=== PATIENT | male | born 1945 | race Caucasian/White ===

== ENCOUNTER 2018-06-28 00:01 | Inpatient (IN) | payer MEDICARE, MEDICAID ==
[~2018-06-28] VITALS: Ht 188 cm; Wt 70.7 kg
[~2018-06-28 00:01] MED LIST: BACL20TA PO; DIPH25CA7 PO; DOCU100C40 PO; FOLI-43 PO; HYDR-4383 PO; HYDR25TA4 PO; MAGN400C PO; MULT-342 PO; NICO-631 TD; NORCO10T PO; OMEP-50 PO; QUET25TA34 PO; THI100T PO; TRAM50TA2 PO
[2018-06-28 02:20] LABS: BASOPHILS # (AUTO) 0.1 X10'3 (0-0.2); BASOPHILS % (AUTO) 0.7 % (0-1); EOSINOPHILS # (AUTO) 0.2 X10'3 (0-0.9); EOSINOPHILS % (AUTO) 1.4 % (0-6); HEMATOCRIT 48.2 % (42.0-52.0); HEMOGLOBIN 16.2 g/dl (14.0-17.9); LYMPHOCYTES # (AUTO) 1.8 X10'3 (1.1-4.8); LYMPHOCYTES % (AUTO) 15.4 % (21-51); MEAN CORPUSCULAR HEMOGLOBIN 29.6 PG (27.0-31.0); MEAN CORPUSCULAR HGB CONC 33.6 % (33.0-36.5); MEAN PLATELET VOLUME 9.4 FL (7.4-10.4); MONOCYTES # (AUTO) 0.5 X10'3 (0-0.9); MONOCYTES % (AUTO) 4.6 % (2-12); NEUTROPHILS # (AUTO) 9.1 X10'3 (1.8-7.7); NEUTROPHILS % (AUTO) 77.9 % (42-75); PLATELET COUNT 110 X10'3 (140-440); RED BLOOD COUNT 5.48 X10'6 (4.70-6.10); RED CELL DISTRIBUTION WIDTH 17.3 % (11.5-14.5); WHITE BLOOD COUNT 11.6 X10'3 (4.5-11.0)
[2018-06-28 02:29] LABS: ALANINE AMINOTRANSFERASE 25 U/L (12-78); ALBUMIN 4.7 G/DL (3.4-5.0); ALBUMIN/GLOBULIN RATIO 1.2 (1.1-1.5); ALKALINE PHOSPHATASE 94 IU/L (46-116); ANION GAP 18 (8-16); ASPARTATE AMINO TRANSFERASE 25 U/L (10-37); BILIRUBIN,TOTAL 1.4 MG/DL (0.1-1.0); BLOOD UREA NITROGEN 26 MG/DL (7-18); BUN/CREATININE RATIO 12.1 (5.4-32.0); CALCIUM 9.4 MG/DL (8.5-10.1); CHLORIDE 93 MMOL/L (99-107); CREATININE 2.14 MG/DL (0.60-1.10); GLUCOSE 123 MG/DL (70-104); LIPASE 108 U/L (73-393); POTASSIUM 3.2 MMOL/L (3.5-5.1); SODIUM 134 MMOL/L (135-145); TOTAL CARBON DIOXIDE 23.2 MMOL/L (24-32); TOTAL PROTEIN 8.7 G/DL (6.4-8.2); eGFR 31 ML/MIN
[2018-06-28] MEDS ORDERED: normal saline 1000ML IV soln IV ONE (04:05)
[2018-06-28] MEDS ORDERED: piperacillin/tazo 3.375gm/50ml 50 ML IV SCH (04:10)
[2018-06-28 04:23] LABS: CLARITY,URINE SLIGHTLY CLOUDY (Clear); COLOR,URINE YELLOW (Yellow); GLUCOSE, URINE NEGATIVE (Neg); KETONES,URINE 15 mg/dl (Neg); LEUKOCYTE ESTERASE ,URINE NEGATIVE (Neg); NITRITES, URINE NEGATIVE (Neg); OCCULT BLOOD,URINE NEGATIVE (Neg); PROTEIN,URINE 100 mg/dl (Neg)
[2018-06-28 04:24] LABS: UA COLLECTION TYPE CLN CATCH MIDSTREAM
[2018-06-28 04:29] LABS: MUCUS STRANDS MANY /LPF (Neg)
[2018-06-28 04:30] LABS: BACTERIA,URINE 2+ /HPF (Neg); SQUAMOUS EPITHELIAL CELL,UR MODERATE /LPF (FEW); WBC,URINE 20-30 /HPF (0-4)
[2018-06-28] MEDS: piperacillin-tazo 2.25gm/50ml 50 ML IV SCH ×2 (04:30→12:27)
[2018-06-28 04:32] LABS: CAL OXALATE CRYSTALS 1+ /HPF (NEGATIVE); RBC,URINE 0-2 /HPF (0-2)
[2018-06-28] MEDS ORDERED: INDO50CA14 PO ×2 (04:40→08:50)
[2018-06-28] MEDS ORDERED: TRAZ-218 PO (04:40)
[2018-06-28] MEDS ORDERED: LISI-600 PO ×2 (04:40→08:50)
[2018-06-28] MEDS ORDERED: DULO60CA45 PO (04:40)
[2018-06-28] MEDS ORDERED: diphenhydrAMINE 25mg capsule PO PRN (04:45)
[2018-06-28] MEDS ORDERED: acetaminophen 325mg tablet PO PRN ×2 (04:45)
[2018-06-28] MEDS ORDERED: mag hydrox/Alum hydrox/simeth 30ml oral suspension PO PRN (04:45)
[2018-06-28] MEDS ORDERED: bisacodyl 10mg suppository rectal RC PRN (04:45)
[2018-06-28] MEDS ORDERED: metoclopramide 5 mg/ml inj IV PRN (04:45)
[2018-06-28] MEDS ORDERED: acetaminophen 650mg rectal suppository RC PRN (04:45)
[2018-06-28] MEDS ORDERED: HYDROmorphone 1 mg/ml syringe IV PRN ×2 (04:45)
[2018-06-28] MEDS ORDERED: magnesium hydroxide 30ml (MOM) UD suspension PO PRN (04:45)
[2018-06-28] MEDS ORDERED: ondansetron/PF 4mg/2ml inj IV PRN (04:45)
[2018-06-28] MEDS ORDERED: HYDROcodone/acetaminophen 10/325mg tab PO PRN (04:45)
[2018-06-28] MEDS ORDERED: diphenhydrAMINE 50 mg/ml inj IV PRN (04:45)
[2018-06-28] MEDS ORDERED: potassium Cl 20 mEq SR tablet PO PRN ×4 (04:45→10:50)
[2018-06-28] MEDS ORDERED: potassium Cl 40MEQ/NS 500ml 500 ML IV PRN ×4 (04:45→10:50)
[2018-06-28] MEDS: potassium Cl 20mEq in NS 1,000 ML IV SCH ×2 (05:35→14:41)
[2018-06-28] MEDS ORDERED: CefTRIAXone/D5W-Rocephin 1gm 50 ML IV SCH (08:00)
[2018-06-28] MEDS: K and/or MAG REPLACEMENT MC SCH ×2 (08:00→20:00)
[2018-06-28 08:23] LABS: PHOSPHORUS 3.2 MG/DL (2.3-4.5)
[2018-06-28] MEDS: pantoprazole 40 MG vial IV SCH (08:35)
[2018-06-28] MEDS: docusate sod 100mg capsule PO SCH ×2 (08:36→20:49)
[2018-06-28] MEDS ORDERED: OMEP40CA37 PO (08:50)
[2018-06-28] MEDS ORDERED: POTA10TA10 PO (08:50)
[2018-06-28] MEDS ORDERED: magnesium 4gm in 100ml NS 100 ML IV PRN (10:15)
[2018-06-28] MEDS ORDERED: magnesium Cl slow-release 64mg tablet PO PRN (10:15)
[2018-06-28] MEDS ORDERED: DULO30CA51 PO (14:58)
[2018-06-28] MEDS ORDERED: haloperidol 5mg tablet PO PRN (15:05)
[2018-06-28] MEDS ORDERED: haloperidol lactate 5mg/ml inj IM PRN (15:05)
[2018-06-28] MEDS ORDERED: thiamine 100mg/ml 2ml inj. IV ONE (15:05)
[2018-06-28] MEDS ORDERED: dextrose 50%-water 50ml dispensing syringe IV PRN (15:05)
[2018-06-28] MEDS ORDERED: LORazepam 2 mg/ml vial IV PRN (15:05)
[2018-06-28] MEDS: metroNIDAZOLE-Flagyl 500mg/NS 100 ML IV SCH (16:27)
[2018-06-28] MEDS: pantoprazole 40mg Tablet.DR PO SCH (20:49)
[2018-06-29] MEDS: metroNIDAZOLE-Flagyl 500mg/NS 100 ML IV SCH ×3 (00:01→16:35)
[2018-06-29] MEDS: traZODone 50mg tablet PO PRN ×2 (00:02→21:36)
[2018-06-29] MEDS: diphenhydrAMINE 25mg capsule PO PRN ×2 (00:04→21:36)
[2018-06-29] MEDS: potassium Cl 20mEq in NS 1,000 ML IV SCH ×3 (00:38→19:21)
[2018-06-29 07:30] LABS: BASOPHILS % (AUTO) 0.5 % (0-1); EOSINOPHILS # (AUTO) 0.3 X10'3 (0-0.9); EOSINOPHILS % (AUTO) 4.6 % (0-6); HEMATOCRIT 34.9 % (42.0-52.0); HEMOGLOBIN 11.8 g/dl (14.0-17.9); LYMPHOCYTES # (AUTO) 1.2 X10'3 (1.1-4.8); LYMPHOCYTES % (AUTO) 21.5 % (21-51); MEAN CORPUSCULAR HEMOGLOBIN 30.2 PG (27.0-31.0); MEAN CORPUSCULAR HGB CONC 33.9 % (33.0-36.5); MEAN CORPUSCULAR VOLUME 89.1 FL (78-98); MEAN PLATELET VOLUME 8.7 FL (7.4-10.4); MONOCYTES # (AUTO) 0.5 X10'3 (0-0.9); NEUTROPHILS # (AUTO) 3.7 X10'3 (1.8-7.7); NEUTROPHILS % (AUTO) 64.4 % (42-75); PLATELET COUNT 65 X10'3 (140-440); RED BLOOD COUNT 3.91 X10'6 (4.70-6.10); WHITE BLOOD COUNT 5.7 X10'3 (4.5-11.0)
[2018-06-29 07:53] LABS: ALANINE AMINOTRANSFERASE 21 U/L (12-78); ALBUMIN 3.2 G/DL (3.4-5.0); ALBUMIN/GLOBULIN RATIO 1.1 (1.1-1.5); ALKALINE PHOSPHATASE 65 IU/L (46-116); ANION GAP 8 (8-16); ASPARTATE AMINO TRANSFERASE 19 U/L (10-37); BILIRUBIN,TOTAL 0.8 MG/DL (0.1-1.0); BLOOD UREA NITROGEN 20 MG/DL (7-18); BUN/CREATININE RATIO 19.4 (5.4-32.0); CALCIUM 8.2 MG/DL (8.5-10.1); CHLORIDE 108 MMOL/L (99-107); CREATININE 1.03 MG/DL (0.60-1.10); GLUCOSE 99 MG/DL (70-104); MAGNESIUM 1.9 MG/DL (1.5-2.4); POTASSIUM 4.3 MMOL/L (3.5-5.1); SODIUM 141 MMOL/L (135-145); TOTAL CARBON DIOXIDE 25.5 MMOL/L (24-32); TOTAL PROTEIN 6.1 G/DL (6.4-8.2); eGFR 71 ML/MIN
[2018-06-29] MEDS: docusate sod 100mg capsule PO SCH ×2 (08:00→20:00)
[2018-06-29] MEDS: pantoprazole 40 MG vial IV SCH (08:00)
[2018-06-29] MEDS: K and/or MAG REPLACEMENT MC SCH ×2 (08:00→20:00)
[2018-06-29 08:42] VITALS: BP 178/91
[2018-06-29] MEDS: potassium chloride 10mEq ER tablet PO SCH (09:23)
[2018-06-29] MEDS: pantoprazole 40mg Tablet.DR PO SCH ×2 (09:24→19:21)
[2018-06-29] MEDS: lisinopril 10 MG tablet PO SCH (09:26)
[2018-06-29 10:00] LABS: OCCULT BLOOD STOOL POSITIVE (Neg)
[2018-06-29 10:29] LABS: C DIFF ANTIGEN NEGATIVE (NEGATIVE); C DIFF SPECIMEN=DIARRHEA? ACCEPTABLE; C DIFFICILE TOXINS A&B NEGATIVE (Neg)
[2018-06-29] MEDS: indomethacin 25mg capsule PO SCH (10:56)
[2018-06-29] MEDS: levoFLOXACIN-Levaquin 250mg/D5 50 ML IV SCH (10:59)
[2018-06-29 18:45] VITALS: BP 125/78
[2018-06-29 23:30] VITALS: BP 116/83
[2018-06-30] MEDS: metroNIDAZOLE-Flagyl 500mg/NS 100 ML IV SCH ×4 (00:02→23:11)
[2018-06-30] MEDS: potassium Cl 20mEq in NS 1,000 ML IV SCH ×3 (05:45→19:17)
[2018-06-30 06:00] LABS: BASOPHILS # (AUTO) 0.1 X10'3 (0-0.2); BASOPHILS % (AUTO) 0.9 % (0-1); EOSINOPHILS # (AUTO) 0.3 X10'3 (0-0.9); EOSINOPHILS % (AUTO) 5.7 % (0-6); HEMATOCRIT 33.9 % (42.0-52.0); HEMOGLOBIN 11.6 g/dl (14.0-17.9); LYMPHOCYTES # (AUTO) 1.4 X10'3 (1.1-4.8); LYMPHOCYTES % (AUTO) 24.4 % (21-51); MEAN CORPUSCULAR HEMOGLOBIN 30.5 PG (27.0-31.0); MEAN CORPUSCULAR HGB CONC 34.3 % (33.0-36.5); MEAN CORPUSCULAR VOLUME 88.7 FL (78-98); MONOCYTES # (AUTO) 0.6 X10'3 (0-0.9); MONOCYTES % (AUTO) 10.4 % (2-12); NEUTROPHILS # (AUTO) 3.3 X10'3 (1.8-7.7); NEUTROPHILS % (AUTO) 58.6 % (42-75); PLATELET COUNT 69 X10'3 (140-440); RED BLOOD COUNT 3.82 X10'6 (4.70-6.10); WHITE BLOOD COUNT 5.6 X10'3 (4.5-11.0)
[2018-06-30 06:12] LABS: ALANINE AMINOTRANSFERASE 21 U/L (12-78); ALBUMIN 3.3 G/DL (3.4-5.0); ALBUMIN/GLOBULIN RATIO 1.1 (1.1-1.5); ALKALINE PHOSPHATASE 92 IU/L (46-116); ANION GAP 10 (8-16); ASPARTATE AMINO TRANSFERASE 18 U/L (10-37); BILIRUBIN,TOTAL 0.6 MG/DL (0.1-1.0); BLOOD UREA NITROGEN 19 MG/DL (7-18); BUN/CREATININE RATIO 23.2 (5.4-32.0); CALCIUM 8.3 MG/DL (8.5-10.1); CHLORIDE 107 MMOL/L (99-107); CREATININE 0.82 MG/DL (0.60-1.10); GLUCOSE 89 MG/DL (70-104); MAGNESIUM 1.7 MG/DL (1.5-2.4); POTASSIUM 4.3 MMOL/L (3.5-5.1); SODIUM 140 MMOL/L (135-145); TOTAL CARBON DIOXIDE 23.5 MMOL/L (24-32); TOTAL PROTEIN 6.2 G/DL (6.4-8.2); eGFR > 90 ML/MIN
[2018-06-30 08:00] VITALS: BP 169/78
[2018-06-30] MEDS: pantoprazole 40 MG vial IV SCH (08:00)
[2018-06-30] MEDS: docusate sod 100mg capsule PO SCH ×2 (08:00→20:00)
[2018-06-30] MEDS: K and/or MAG REPLACEMENT MC SCH ×2 (08:00→20:00)
[2018-06-30] MEDS: potassium chloride 10mEq ER tablet PO SCH (08:34)
[2018-06-30] MEDS: lisinopril 10 MG tablet PO SCH (08:35)
[2018-06-30] MEDS: pantoprazole 40mg Tablet.DR PO SCH ×2 (08:35→20:09)
[2018-06-30] MEDS ORDERED: pneumococcal 23-VAL P-sac vacc 25 mcg/0.5ml vial IMVAC ONE (10:00)
[2018-06-30] MEDS: indomethacin 25mg capsule PO SCH (10:18)
[2018-06-30] MEDS: duloxetine 30mg CAPSULE.DR PO SCH (10:18)
[2018-06-30] MEDS: loperamide 2mg capsule PO PRN ×2 (10:18→16:49)
[2018-06-30] MEDS: levoFLOXACIN-Levaquin 250mg/D5 50 ML IV SCH (10:19)
[2018-06-30 13:03] VITALS: BP 149/87
[2018-06-30] MEDS ORDERED: LORazepam 2 mg/ml vial IV PRN (15:05)
[2018-06-30] MEDS ORDERED: LORazepam 1 MG tablet PO PRN (15:05)
[2018-06-30 19:20] VITALS: BP 130/79
[2018-06-30] MEDS: traZODone 50mg tablet PO PRN (23:11)
[2018-06-30] MEDS: diphenhydrAMINE 25mg capsule PO PRN (23:11)
[2018-07-01] VITALS: BP 146/80
[2018-07-01] MEDS: potassium Cl 20mEq in NS 1,000 ML IV SCH ×2 (05:07→12:41)
[2018-07-01 06:29] LABS: ALANINE AMINOTRANSFERASE 20 U/L (12-78); ALBUMIN 3.4 G/DL (3.4-5.0); ALBUMIN/GLOBULIN RATIO 1.1 (1.1-1.5); ALKALINE PHOSPHATASE 68 IU/L (46-116); ANION GAP 6 (8-16); ASPARTATE AMINO TRANSFERASE 15 U/L (10-37); BILIRUBIN,TOTAL 0.8 MG/DL (0.1-1.0); BLOOD UREA NITROGEN 13 MG/DL (7-18); BUN/CREATININE RATIO 14.9 (5.4-32.0); CALCIUM 8.6 MG/DL (8.5-10.1); CHLORIDE 108 MMOL/L (99-107); CREATININE 0.87 MG/DL (0.60-1.10); GLUCOSE 83 MG/DL (70-104); MAGNESIUM 1.4 MG/DL (1.5-2.4); POTASSIUM 4.1 MMOL/L (3.5-5.1); SODIUM 142 MMOL/L (135-145); TOTAL CARBON DIOXIDE 28.4 MMOL/L (24-32); TOTAL PROTEIN 6.4 G/DL (6.4-8.2); eGFR 87 ML/MIN
[2018-07-01 06:32] LABS: BASOPHILS % (AUTO) 0.6 % (0-1); EOSINOPHILS # (AUTO) 0.4 X10'3 (0-0.9); EOSINOPHILS % (AUTO) 5.3 % (0-6); HEMATOCRIT 37.9 % (42.0-52.0); HEMOGLOBIN 12.4 g/dl (14.0-17.9); LYMPHOCYTES # (AUTO) 1.5 X10'3 (1.1-4.8); MEAN CORPUSCULAR HEMOGLOBIN 29.5 PG (27.0-31.0); MEAN CORPUSCULAR HGB CONC 32.8 % (33.0-36.5); MEAN PLATELET VOLUME 8.6 FL (7.4-10.4); MONOCYTES # (AUTO) 0.7 X10'3 (0-0.9); MONOCYTES % (AUTO) 10.5 % (2-12); NEUTROPHILS # (AUTO) 4.1 X10'3 (1.8-7.7); NEUTROPHILS % (AUTO) 61.6 % (42-75); PLATELET COUNT 88 X10'3 (140-440); RED BLOOD COUNT 4.21 X10'6 (4.70-6.10); RED CELL DISTRIBUTION WIDTH 18.2 % (11.5-14.5); WHITE BLOOD COUNT 6.7 X10'3 (4.5-11.0)
[2018-07-01 07:12] VITALS: BP 135/84
[2018-07-01] MEDS: docusate sod 100mg capsule PO SCH (07:58)
[2018-07-01] MEDS: indomethacin 25mg capsule PO SCH (08:00)
[2018-07-01] MEDS: K and/or MAG REPLACEMENT MC SCH (08:00)
[2018-07-01] MEDS: pantoprazole 40 MG vial IV SCH (08:00)
[2018-07-01] MEDS: lisinopril 10 MG tablet PO SCH (08:01)
[2018-07-01] MEDS: potassium chloride 10mEq ER tablet PO SCH (08:01)
[2018-07-01] MEDS: metroNIDAZOLE-Flagyl 500mg/NS 100 ML IV SCH (08:01)
[2018-07-01] MEDS: duloxetine 30mg CAPSULE.DR PO SCH (08:01)
[2018-07-01] MEDS: pantoprazole 40mg Tablet.DR PO SCH (08:01)
[2018-07-01] MEDS: levoFLOXACIN-Levaquin 250mg/D5 50 ML IV SCH (09:43)
[2018-07-01 12:06] VITALS: BP 143/92
[2018-07-02] MEDS ORDERED: LORazepam 1 MG tablet PO PRN (15:05)
[2018-07-02] MEDS ORDERED: LORazepam 2 mg/ml vial IV PRN (15:05)
== END 2018-07-01 13:10 | disposition home or self-care (01) | DRG 391 ==
LOC: ER 00:02 → ED HOLD 04:41 → SUR 3N 06-29 07:51 → CMPBEDREQ 06-29 08:25 → SUR 3N 06-29 14:12
PROVIDERS: ADMIT Family Medicine; ATTEND Family Medicine
PROC: 3E0234Z Introduction of Serum, Toxoid and Vaccine into Muscle, Percutaneous Approach (ICD-10-PCS; principal; 2018-06-30)
DX: A08.4 Viral intestinal infection, unspecified (principal); N17.0 Acute kidney failure with tubular necrosis; N39.0 Urinary tract infection, site not specified; E87.1 Hypo-osmolality and hyponatremia; D69.6 Thrombocytopenia, unspecified; E83.42 Hypomagnesemia; E86.0 Dehydration; E87.6 Hypokalemia; F10.20 Alcohol dependence, uncomplicated; F41.1 Generalized anxiety disorder; M10.9 Gout, unspecified; G89.29 Other chronic pain; I12.9 Hypertensive chronic kidney disease with stage 1 through stage 4 chronic kidney disease, or unspecified chronic kidney disease; N18.9 Chronic kidney disease, unspecified; N20.0 Calculus of kidney; Z56.0 Unemployment, unspecified; Z90.49 Acquired absence of other specified parts of digestive tract; Z23 Encounter for immunization; Z88.6 Allergy status to analgesic agent; Z79.899 Other long term (current) drug therapy; Z87.11 Personal history of peptic ulcer disease
CPT/HCPCS: 36415; 74176; 80053; 81001; 82272; 83605; 83690; 83735; 84100; 84145; 85025; 87040; 87045; 87046; 87070; 87088; 87324; 87449; 89055; 90732; 99285; C9113; G0378; J0696; J1956; J2543; J3411; J3475; J3490; J7030; Q0163

== ENCOUNTER 2018-08-04 10:04 | Emergency (ER) | payer MEDICARE, MEDICAID ==
[~2018-08-04] VITALS: Ht 182.9 cm; Wt 68.2 kg
[~2018-08-04 10:04] MED LIST changes: -BACL20TA PO; -DOCU100C40 PO; +DULO30CA51 PO; -FOLI-43 PO; -HYDR-4383 PO; -HYDR25TA4 PO; +INDO50CA14 PO; +LISI-600 PO; -MAGN400C PO; -MULT-342 PO; -NICO-631 TD; -NORCO10T PO; -OMEP-50 PO; +OMEP40CA37 PO; +POTA10TA10 PO; -QUET25TA34 PO; -THI100T PO; -TRAM50TA2 PO; +TRAZ-218 PO
[2018-08-04] MEDS ORDERED: ondansetron/PF 4mg/2ml inj IV ONE (10:15)
[2018-08-04] MEDS ORDERED: metoclopramide 5 mg/ml inj IV ONE (10:15)
[2018-08-04] MEDS ORDERED: pantoprazole 40 MG vial IV ONE (10:15)
[2018-08-04] MEDS ORDERED: normal saline 1000ML IV soln IVB ONE (10:15)
[2018-08-04] MEDS ORDERED: LORazepam 2 mg/ml vial IV ONE (10:15)
[2018-08-04 11:12] LABS: BASOPHILS % (AUTO) 1.4 % (0-1); EOSINOPHILS # (AUTO) 0.1 X10'3 (0-0.9); EOSINOPHILS % (AUTO) 2.1 % (0-6); HEMATOCRIT 37.8 % (42.0-52.0); LYMPHOCYTES # (AUTO) 0.6 X10'3 (1.1-4.8); LYMPHOCYTES % (AUTO) 20.9 % (21-51); MEAN CORPUSCULAR HGB CONC 34.5 % (33.0-36.5); MEAN PLATELET VOLUME 7.5 FL (7.4-10.4); MONOCYTES # (AUTO) 0.3 X10'3 (0-0.9); MONOCYTES % (AUTO) 9.4 % (2-12); NEUTROPHILS % (AUTO) 66.2 % (42-75); PLATELET COUNT 60 X10'3 (140-440); RED CELL DISTRIBUTION WIDTH 18.5 % (11.5-14.5)
[2018-08-04 11:26] LABS: ALANINE AMINOTRANSFERASE 45 U/L (12-78); ALBUMIN 3.5 G/DL (3.4-5.0); ALBUMIN/GLOBULIN RATIO 1.2 (1.1-1.5); ALKALINE PHOSPHATASE 61 IU/L (46-116); ANION GAP 19 (8-16); ASPARTATE AMINO TRANSFERASE 39 U/L (10-37); BILIRUBIN,TOTAL 0.5 MG/DL (0.1-1.0); BLOOD UREA NITROGEN 10 MG/DL (7-18); BUN/CREATININE RATIO 13.2 (5.4-32.0); CALCIUM 8.2 MG/DL (8.5-10.1); CHLORIDE 99 MMOL/L (99-107); CREATININE 0.76 MG/DL (0.60-1.10); GLUCOSE 114 MG/DL (70-104); LIPASE 114 U/L (73-393); MAGNESIUM 1.2 MG/DL (1.5-2.4); PARTIAL THROMBOPLASTIN TIME 26 SECONDS (22-32); POTASSIUM 3.1 MMOL/L (3.5-5.1); PROTHROMBIN TIME 10.4 SECONDS (9.0-12.0); SODIUM 139 MMOL/L (135-145); TOTAL CARBON DIOXIDE 21.3 MMOL/L (24-32); TOTAL PROTEIN 6.5 G/DL (6.4-8.2); eGFR > 90 ML/MIN
[2018-08-04 12:06] LABS: CLARITY,URINE CLEAR (Clear); COLOR,URINE YELLOW (Yellow); GLUCOSE, URINE NEGATIVE (Neg); KETONES,URINE NEGATIVE (Neg); LEUKOCYTE ESTERASE ,URINE NEGATIVE (Neg); NITRITES, URINE NEGATIVE (Neg); OCCULT BLOOD,URINE NEGATIVE (Neg); PROTEIN,URINE NEGATIVE (Neg); UROBILINOGEN,URINE 0.2 E.U/dL (0.2-1.0)
[2018-08-04 12:07] LABS: UA COLLECTION TYPE CLN CATCH MIDSTREAM
[2018-08-04] MEDS ORDERED: potassium Cl 20 mEq SR tablet PO ONE (12:15)
--- NOTE | 2018-08-04 12:17 | NUR ---
to ct scan via [place]
[2018-08-04] MEDS: magnesium 2GM in 50ml NS 50 ML IV SCH ×2 (12:45→13:57)
[2018-08-04] MEDS ORDERED: GABA-532 PO (13:32)
[2018-08-04 13:35] VITALS: BP 131/82
[2018-08-04] MEDS ORDERED: chlordiazePOXIDE 25mg capsule PO ONE (13:35)
== END 2018-08-04 15:07 | disposition home or self-care (01) ==
LOC: ER 10:04
DX: F10.239 Alcohol dependence with withdrawal, unspecified (principal); R11.2 Nausea with vomiting, unspecified; R10.10 Upper abdominal pain, unspecified; I10 Essential (primary) hypertension; G89.29 Other chronic pain; M10.9 Gout, unspecified; Z90.49 Acquired absence of other specified parts of digestive tract; Z88.5 Allergy status to narcotic agent; Z79.899 Other long term (current) drug therapy; Y90.9 Presence of alcohol in blood, level not specified; Z56.0 Unemployment, unspecified
CPT/HCPCS: 36415; 71045; 74176; 80053; 80320; 81003; 83690; 83735; 85025; 85610; 85730; 96361; 96365; 96366; 96375; 99284; C9113; J2060; J2405; J2765; J3475; J7030

== ENCOUNTER 2018-08-18 19:15 | Inpatient (IN) | payer MEDICARE, MEDICAID | END 2018-08-20 14:59 | disposition home or self-care (01) | LOC: ER 19:15 → ED HOLD 23:14 → SUR 3N 08-19 16:13 | DX: K52.9 Noninfective gastroenteritis and colitis, unspecified (principal); N17.0 Acute kidney failure with tubular necrosis; F10.11 Alcohol abuse, in remission; E86.0 Dehydration ==

== ENCOUNTER 2019-01-17 14:24 | Emergency (ER) | payer MEDICARE, MEDICAID ==
[~2019-01-17] VITALS: Ht 182.9 cm; Wt 68.2 kg
[~2019-01-17 14:24] MED LIST changes: -DULO30CA51 PO; +DULO30CA52 PO; +FOLI1TAB16 PO; +GABA-532 PO; -INDO50CA14 PO; -LISI-600 PO; +MULT-1179 PO; -POTA10TA10 PO; +POTASSIUM PO; +QUELT PO; -TRAZ-218 PO; +TRAZ-251 PO; +thiamine tablet PO
[2019-01-17 14:46] VITALS: BP 128/91
== END 2019-01-17 17:05 | disposition home or self-care (01) ==
LOC: ER 14:24
DX: M25.532 Pain in left wrist (principal); I10 Essential (primary) hypertension; G89.29 Other chronic pain; M10.9 Gout, unspecified; Z90.49 Acquired absence of other specified parts of digestive tract; Z56.0 Unemployment, unspecified; Z87.11 Personal history of peptic ulcer disease; Z88.5 Allergy status to narcotic agent; Z79.899 Other long term (current) drug therapy
CPT/HCPCS: 29125; 73110; 99283

== ENCOUNTER 2019-05-12 11:44 | Inpatient (IN) | payer MEDICARE, MEDICAID ==
[~2019-05-12] VITALS: Ht 188 cm; Wt 75.0 kg
[~2019-05-12 11:44] MED LIST changes: -DIPH25CA7 PO; +OMEP40CA13 PO; -OMEP40CA37 PO; +[UNRECOGNIZED DRUG - CODE] PO
[2019-05-12] MEDS ORDERED: LORazepam 2 mg/ml vial IV ONE ×2 (11:50→14:00)
[2019-05-12] MEDS ORDERED: ondansetron/PF 4mg/2ml inj IV ONE (11:50)
[2019-05-12] MEDS ORDERED: normal saline 1000ML IV soln IVB ONE (11:50)
[2019-05-12] MEDS ORDERED: pantoprazole 40 MG vial IV ONE (11:50)
[2019-05-12 12:09] LABS: BASOPHILS # (AUTO) 0.1 X10'3 (0-0.2); BASOPHILS % (AUTO) 0.8 % (0-1); EOSINOPHILS % (AUTO) 0.2 % (0-6); HEMATOCRIT 40.7 % (42.0-52.0); HEMOGLOBIN 13.5 g/dl (14.0-17.9); LYMPHOCYTES # (AUTO) 2.5 X10'3 (1.1-4.8); LYMPHOCYTES % (AUTO) 31.6 % (21-51); MEAN CORPUSCULAR HGB CONC 33.1 g/dL (33.0-36.5); MEAN CORPUSCULAR VOLUME 96.7 FL (78-98); MEAN PLATELET VOLUME 9.1 FL (7.4-10.4); MONOCYTES # (AUTO) 0.8 X10'3 (0-0.9); MONOCYTES % (AUTO) 10.4 % (2-12); NEUTROPHILS # (AUTO) 4.6 X10'3 (1.8-7.7); RED BLOOD COUNT 4.21 X10'6 (4.70-6.10); RED CELL DISTRIBUTION WIDTH 16.4 % (11.5-14.5)
--- NOTE | 2019-05-12 12:19 | NUR ---
REMOVE NONREBREATHER THAT PT HAD ON WHEN HE ARRIVED WITH EMS.
[2019-05-12 12:22] LABS: ALANINE AMINOTRANSFERASE 77 U/L (12-78); ALBUMIN 3.7 G/DL (3.4-5.0); ALBUMIN/GLOBULIN RATIO 1.2 (1.1-1.5); ALKALINE PHOSPHATASE 76 IU/L (46-116); ANION GAP 27 (8-16); ASPARTATE AMINO TRANSFERASE 103 U/L (10-37); BILIRUBIN,TOTAL 1.2 MG/DL (0.1-1.0); BLOOD UREA NITROGEN 10 MG/DL (7-18); BUN/CREATININE RATIO 9.2 (5.4-32.0); CALCIUM 9.7 MG/DL (8.5-10.1); CHLORIDE 95 MMOL/L (99-107); CREATININE 1.09 MG/DL (0.60-1.10); GLUCOSE 150 MG/DL (70-104); POTASSIUM 3.3 MMOL/L (3.5-5.1); SODIUM 139 MMOL/L (135-145); TOTAL CARBON DIOXIDE 17.1 MMOL/L (24-32); TOTAL PROTEIN 6.9 G/DL (6.4-8.2); eGFR 67 ML/MIN
[2019-05-12 12:25] LABS: ETHANOL < 0.010 GM/DL (0.0-0.010); MAGNESIUM 0.7 MG/DL (1.5-2.4); PLATELET COUNT 46 X10'3 (140-440)
[2019-05-12] MEDS: magnesium 2GM in 50ml NS 50 ML IV SCH ×2 (12:52→15:11)
--- NOTE | 2019-05-12 12:53 | NUR ---
Pt is attempting to use a urinal to void and provide urine specimen.
[2019-05-12 13:15] LABS: CLARITY,URINE CLEAR (Clear); COLOR,URINE STRAW (Yellow); GLUCOSE, URINE NEGATIVE (Neg); KETONES,URINE NEGATIVE (Neg); LEUKOCYTE ESTERASE ,URINE NEGATIVE (Neg); NITRITES, URINE NEGATIVE (Neg); OCCULT BLOOD,URINE NEGATIVE (Neg); PROTEIN,URINE NEGATIVE (Neg); UROBILINOGEN,URINE 0.2 E.U/dL (0.2-1.0)
[2019-05-12 13:18] LABS: UA COLLECTION TYPE NON-SPECIFIED
[2019-05-12 13:29] LABS: URINE AMPHETAMINE SCREEN NEGATIVE (Neg); URINE BARBITUATE SCREEN NEGATIVE (Neg); URINE BENZODIAZEPINES SCREEN NEGATIVE (Neg); URINE CANNABINOID SCREEN NEGATIVE (Neg); URINE COCAINE SCREEN NEGATIVE (Neg); URINE METHADONE SCREEN NEGATIVE (Neg); URINE OPIATE SCREEN NEGATIVE (Neg); URINE PHENCYCLIDINE SCREEN NEGATIVE (Neg)
[2019-05-12] MEDS ORDERED: MULT-955 PO (13:55)
[2019-05-12] MEDS ORDERED: GABA300T25 PO (13:55)
[2019-05-12] MEDS ORDERED: MULT-687 PO (13:56)
[2019-05-12] MEDS ORDERED: ALLO300T8 PO (13:58)
[2019-05-12] MEDS ORDERED: LISI10TA4 PO (13:58)
[2019-05-12] MEDS ORDERED: COLC0.6T69 PO (13:58)
--- NOTE | 2019-05-12 14:10 | NUR ---
PT TAKEN OUT TO CT VIA GURNEY BY KEI. SEIZURE PADS IN PLACE.
--- NOTE | 2019-05-12 14:36 | NUR ---
PT BACK FROM CT VIA [facility] BY [facility].
[2019-05-12] MEDS ORDERED: traZODone 50mg tablet PO PRN (14:40)
[2019-05-12] MEDS ORDERED: mag hydrox/Alum hydrox/simeth 30ml oral suspension PO PRN ×2 (14:50)
[2019-05-12] MEDS ORDERED: cloNIDine 0.1 mg tablet PO PRN (14:50)
[2019-05-12] MEDS ORDERED: haloperidol lactate 5mg/ml inj IM PRN (14:50)
[2019-05-12] MEDS ORDERED: loperamide 2mg capsule PO PRN (14:50)
[2019-05-12] MEDS ORDERED: cyclobenzaprine 10mg tablet PO PRN (14:50)
[2019-05-12] MEDS ORDERED: metoclopramide 5 mg/ml inj IV PRN (14:50)
[2019-05-12] MEDS ORDERED: diphenhydrAMINE 25mg capsule PO PRN (14:50)
[2019-05-12] MEDS ORDERED: magnesium Cl slow-release 64mg tablet PO PRN (14:50)
[2019-05-12] MEDS ORDERED: bisacodyl 10mg suppository rectal RC PRN (14:50)
[2019-05-12] MEDS ORDERED: magnesium 4gm in 100ml NS 100 ML IV PRN (14:50)
[2019-05-12] MEDS ORDERED: ondansetron/PF 4mg/2ml inj IV PRN (14:50)
[2019-05-12] MEDS ORDERED: LORazepam 2 mg/ml vial IV PRN ×2 (14:50)
[2019-05-12] MEDS ORDERED: potassium CL 10mEq/100ml bag 100 ML IV PRN ×2 (14:50)
[2019-05-12] MEDS ORDERED: diphenhydrAMINE 50 mg/ml inj IV PRN (14:50)
[2019-05-12] MEDS ORDERED: acetaminophen 650mg rectal suppository RC PRN (14:50)
[2019-05-12] MEDS ORDERED: dextrose 50%-water 50ml dispensing syringe IV PRN (14:50)
[2019-05-12] MEDS ORDERED: acetaminophen 325mg tablet PO PRN ×2 (14:50)
[2019-05-12] MEDS ORDERED: potassium Cl 20 mEq SR tablet PO PRN ×2 (14:50)
[2019-05-12] MEDS ORDERED: dicyclomine 10 MG capsule PO PRN (14:50)
[2019-05-12] MEDS ORDERED: magnesium hydroxide 30ml (MOM) UD suspension PO PRN (14:50)
[2019-05-12] MEDS ORDERED: thiamine 100mg/ml 2ml inj. IV ONE (14:50)
[2019-05-12] MEDS ORDERED: magnesium 2GM in 50ml NS 50 ML IV PRN (14:50)
--- NOTE | 2019-05-12 15:04 | NUR ---
Admission provider is at the bedside.
[2019-05-12 15:14] LABS: HEMOGLOBIN A1C 5.3 % (4.5-6.2)
[2019-05-12] MEDS: normal saline 1000ml 1,000 ML IV SCH (15:15)
--- NOTE | 2019-05-12 15:47 | NUR ---
Attempting to phone report to Ortho at this time.
--- NOTE | 2019-05-12 15:55 | NUR ---
Report given to JANET Hughes. Staff on Ortho reports they will phone the ED when the admission room is clean and ready.
[2019-05-12] MEDS: K and/or MAG REPLACEMENT MC SCH (16:16)
[2019-05-12 16:53] VITALS: BP 128/64
[2019-05-12 18:00] VITALS: BP 140/86
[2019-05-12] MEDS: Levetiracetam-NS 500mg/100ml 100 ML IV SCH (20:06)
[2019-05-12] MEDS: heparin, porcine 5000 units/ml vial SQ SCH (20:11)
[2019-05-12] MEDS ORDERED: temazepam 15mg capsule PO PRN (21:00)
[2019-05-12 22:00] VITALS: BP 124/81
[2019-05-13] MEDS: normal saline 1000ml 1,000 ML IV SCH ×3 (03:34→19:45)
[2019-05-13 05:49] LABS: EOSINOPHILS % (AUTO) 1.2 % (0-6); HEMOGLOBIN 13.4 g/dl (14.0-17.9); MONOCYTES # (AUTO) 0.4 X10'3 (0-0.9); MONOCYTES % (AUTO) 8.8 % (2-12); NEUTROPHILS # (AUTO) 2.6 X10'3 (1.8-7.7)
[2019-05-13 05:51] LABS: BASOPHILS % (AUTO) 1.1 % (0-1); EOSINOPHILS # (AUTO) 0.1 X10'3 (0-0.9); HEMATOCRIT 39.8 % (42.0-52.0); LYMPHOCYTES % (AUTO) 25.2 % (21-51); MEAN CORPUSCULAR HEMOGLOBIN 31.8 PG (27.0-31.0); MEAN CORPUSCULAR HGB CONC 33.7 g/dL (33.0-36.5); MEAN CORPUSCULAR VOLUME 94.5 FL (78-98); NEUTROPHILS % (AUTO) 63.7 % (42-75); RED BLOOD COUNT 4.21 X10'6 (4.70-6.10); RED CELL DISTRIBUTION WIDTH 16.8 % (11.5-14.5); WHITE BLOOD COUNT 4.1 X10'3 (4.5-11.0)
[2019-05-13 05:56] LABS: PLATELET COUNT 42 X10'3 (140-440)
--- NOTE | 2019-05-13 06:02 | NUR ---
CRITICAL LAB PLATELETS 42, DOWN FROM [address] STEVENS. NO NEW ORDERS.
--- NOTE | 2019-05-13 06:18 | NUR ---
REPORT GIVEN TO AJNET HARRIS.
[2019-05-13 06:24] LABS: ALANINE AMINOTRANSFERASE 61 U/L (12-78); ALBUMIN 3.4 G/DL (3.4-5.0); ALKALINE PHOSPHATASE 78 IU/L (46-116); AMYLASE 95 U/L (25-115); ANION GAP 11 (8-16); ASPARTATE AMINO TRANSFERASE 69 U/L (10-37); BILIRUBIN,TOTAL 1.2 MG/DL (0.1-1.0); BLOOD UREA NITROGEN 7 MG/DL (7-18); BUN/CREATININE RATIO 8.3 (5.4-32.0); CALCIUM 9.1 MG/DL (8.5-10.1); CHLORIDE 102 MMOL/L (99-107); CHOLESTEROL 340 MG/DL (0-200); CREATININE 0.84 MG/DL (0.60-1.10); GLUCOSE 84 MG/DL (70-104); LDL CHOLESTEROL 65 MG/DL (50-100); MAGNESIUM 1.5 MG/DL (1.5-2.4); PHOSPHORUS 3.5 MG/DL (2.3-4.5); POTASSIUM 3.6 MMOL/L (3.5-5.1); SODIUM 140 MMOL/L (135-145); TOTAL CARBON DIOXIDE 27.1 MMOL/L (24-32); TOTAL PROTEIN 6.8 G/DL (6.4-8.2); TRIGLYCERIDES 42 MG/DL (20-135); eGFR 90 ML/MIN
[2019-05-13 06:25] LABS: ANISOCYTOSIS 1+; LARGE PLATELETS FEW; PLATELET ESTIMATE DECREASED
[2019-05-13 06:42] VITALS: BP 131/82
[2019-05-13 06:46] LABS: HDL CHOLESTEROL > 155 MG/DL (35-60)
[2019-05-13] MEDS: heparin, porcine 5000 units/ml vial SQ SCH (07:45)
[2019-05-13] MEDS: K and/or MAG REPLACEMENT MC SCH (07:59)
[2019-05-13] MEDS ORDERED: MVI, adult No.4 with vit. K 10 ML in dextrose 5% water 500ml 500 ML IV SCH ×2 (08:00)
[2019-05-13] MEDS ORDERED: thiamine inj. 100 MG, folic acid inj. 2 MG in normal saline 100ml IV soln 100 ML IV SCH (08:00)
[2019-05-13] MEDS: multivitamins, therapeutics tablet PO SCH (08:01)
[2019-05-13] MEDS: lisinopril 10 MG tablet PO SCH (08:01)
[2019-05-13] MEDS: allopurinol 300 MG tablet PO SCH (08:01)
[2019-05-13] MEDS: duloxetine 30mg CAPSULE.DR PO SCH (08:01)
[2019-05-13] MEDS: colchicine 0.6mg tablet PO SCH (08:01)
[2019-05-13 08:11] VITALS: BP_SYST 120; BP_SYST 123; BP_SYST 132; BP_DIAS 80; BP_DIAS 87; BP_DIAS 90
[2019-05-13 10:00] VITALS: BP 135/87
[2019-05-13] MEDS ORDERED: FLU VACC QS 2019-20 (6 MOS UP) 60 MCG/0.5 ML VIAL IMVAC ONE (10:00)
--- NOTE | 2019-05-13 10:02 | NUR ---
Initial: Pt admit w/ etoh w/d, thrombocytopenia, and hypomagnesemia 0.7 on admit per MD note. Receiving banana bag w/ PO 75% avg mechanical soft/grind/regular diet meeting needs. LBM 05/12. Cholesterol 340 on admit but HDL also greater than 155. No nutrition concerns at this time. Will continue to monitor. Rec: 1. continue mechanical soft/grind diet per MD 2. banana bag vs PO thiamin/folic/MVI for etoh hx per MD 3. wt per rx Addendum: 05/13/19 at [address] Amended: Links added.
[2019-05-13] MEDS: Levetiracetam-NS 500mg/100ml 100 ML IV SCH (10:22)
[2019-05-13] MEDS ORDERED: pantoprazole 40 MG vial IV ONE (17:50)
[2019-05-13 18:00] VITALS: BP 125/84
[2019-05-13] MEDS: levetiracetam 250mg tablet PO SCH (19:37)
[2019-05-13] MEDS: thiamine 100mg tablet PO SCH (19:38)
[2019-05-13 20:00] VITALS: BP_SYST 118; BP_SYST 120; BP_DIAS 71; BP_DIAS 77; BP_DIAS 81
[2019-05-13 22:00] VITALS: BP 118/71
[2019-05-14 06:00] VITALS: BP 152/83
--- NOTE | 2019-05-14 06:05 | NUR ---
Patient in room [facility]TH[facility] 4020. I have received report from Lara and had the opportunity to ask questions and assume patient care.
[2019-05-14 06:11] LABS: BASOPHILS % (AUTO) 1.2 % (0-1); EOSINOPHILS # (AUTO) 0.1 X10'3 (0-0.9); EOSINOPHILS % (AUTO) 1.9 % (0-6); HEMATOCRIT 35.1 % (42.0-52.0); HEMOGLOBIN 12.1 g/dl (14.0-17.9); LYMPHOCYTES # (AUTO) 1.2 X10'3 (1.1-4.8); LYMPHOCYTES % (AUTO) 27.9 % (21-51); MEAN CORPUSCULAR HEMOGLOBIN 32.7 PG (27.0-31.0); MEAN CORPUSCULAR HGB CONC 34.4 g/dL (33.0-36.5); MEAN CORPUSCULAR VOLUME 95.1 FL (78-98); MEAN PLATELET VOLUME 9.9 FL (7.4-10.4); MONOCYTES # (AUTO) 0.5 X10'3 (0-0.9); NEUTROPHILS # (AUTO) 2.4 X10'3 (1.8-7.7); RED CELL DISTRIBUTION WIDTH 16.6 % (11.5-14.5); WHITE BLOOD COUNT 4.2 X10'3 (4.5-11.0)
--- NOTE | 2019-05-14 06:14 | NUR ---
Problems reprioritized. Patient report given, questions answered & plan of care reviewed with JANET BOJORQUEZ.
[2019-05-14 06:34] LABS: PLATELET COUNT 45 X10'3 (140-440)
--- NOTE | 2019-05-14 06:36 | NUR ---
Received call from lab, critical platelets of 45
[2019-05-14] MEDS: normal saline 1000ml 1,000 ML IV SCH (06:46)
[2019-05-14 06:47] LABS: ALANINE AMINOTRANSFERASE 52 U/L (12-78); ALBUMIN 3.1 G/DL (3.4-5.0); ALKALINE PHOSPHATASE 79 IU/L (46-116); AMYLASE 98 U/L (25-115); ANION GAP 7 (8-16); ASPARTATE AMINO TRANSFERASE 44 U/L (10-37); BILIRUBIN,TOTAL 0.9 MG/DL (0.1-1.0); BLOOD UREA NITROGEN 7 MG/DL (7-18); BUN/CREATININE RATIO 8.5 (5.4-32.0); CALCIUM 8.7 MG/DL (8.5-10.1); CHLORIDE 105 MMOL/L (99-107); CREATININE 0.82 MG/DL (0.60-1.10); GLUCOSE 95 MG/DL (70-104); MAGNESIUM 1.3 MG/DL (1.5-2.4); PHOSPHORUS 3.2 MG/DL (2.3-4.5); POTASSIUM 4.2 MMOL/L (3.5-5.1); SODIUM 140 MMOL/L (135-145); TOTAL CARBON DIOXIDE 27.6 MMOL/L (24-32); TOTAL PROTEIN 6.3 G/DL (6.4-8.2); eGFR > 90 ML/MIN
--- NOTE | 2019-05-14 07:08 | NUR ---
PAGER ID: [phone] MESSAGE: Good morning Dr. Schneider, critical lab for Mr. Bains in 4020A, platelets are 45, thank you Sara
[2019-05-14] MEDS: K and/or MAG REPLACEMENT MC SCH (07:24)
[2019-05-14] MEDS: duloxetine 30mg CAPSULE.DR PO SCH (07:37)
[2019-05-14] MEDS: colchicine 0.6mg tablet PO SCH (07:37)
[2019-05-14] MEDS: levetiracetam 250mg tablet PO SCH (07:38)
[2019-05-14] MEDS: multivitamins, therapeutics tablet PO SCH (07:38)
[2019-05-14] MEDS: thiamine 100mg tablet PO SCH (07:38)
[2019-05-14] MEDS: allopurinol 300 MG tablet PO SCH (07:38)
[2019-05-14] MEDS: lisinopril 10 MG tablet PO SCH (07:41)
[2019-05-14] MEDS ORDERED: folic acid 1mg tablet PO SCH (08:00)
[2019-05-14] MEDS ORDERED: pantoprazole 40 MG vial IV SCH (08:00)
[2019-05-14 08:26] VITALS: BP_SYST 133; BP_SYST 139; BP_SYST 152; BP_DIAS 89; BP_DIAS 90; BP_DIAS 91
[2019-05-14] MEDS ORDERED: thiamine tablet PO (09:04)
[2019-05-14] MEDS ORDERED: KEP500T PO (09:04)
[2019-05-14] MEDS ORDERED: folic acid tablet PO (09:04)
--- NOTE | 2019-05-14 09:15 | NUR ---
Discharge orders in, pt is awaiting ride who will be able to pick him up at approximately 14:30.
[2019-05-14 10:00] VITALS: BP 131/87
--- NOTE | 2019-05-14 14:28 | NUR ---
Reviewed discharge instructions with pt. Pt verbalized understanding. Pt is alert, oriented and does not have c/o pain or discomfort at this time. All of pt's belongings were returned to pt. Rx was called in to [facility] ([address]) on [address]. Pt was wheeled downstairs to be driven home by his [facility] worker.
== END 2019-05-14 14:25 | disposition home health service (06) | DRG 101 ==
LOC: ER 11:45 → ED HOLD 14:46 → ORTHO 4S 16:45
PROVIDERS: ADMIT Family Medicine; ATTEND Family Medicine
PROC: 4A10X4Z Monitoring of Central Nervous Electrical Activity, External Approach (ICD-10-PCS; principal; 2019-05-14)
DX: G40.409 Other generalized epilepsy and epileptic syndromes, not intractable, without status epilepticus (principal); F10.239 Alcohol dependence with withdrawal, unspecified; E87.2 Acidosis; D63.8 Anemia in other chronic diseases classified elsewhere; D69.59 Other secondary thrombocytopenia; E83.42 Hypomagnesemia; F32.9 Major depressive disorder, single episode, unspecified; F41.9 Anxiety disorder, unspecified; G89.4 Chronic pain syndrome; M54.9 Dorsalgia, unspecified; R74.0 Nonspecific elevation of levels of transaminase and lactic acid dehydrogenase [LDH]; I10 Essential (primary) hypertension; M10.9 Gout, unspecified; Z87.11 Personal history of peptic ulcer disease; Z88.6 Allergy status to analgesic agent; Z90.49 Acquired absence of other specified parts of digestive tract; Z56.0 Unemployment, unspecified; F10.20 Alcohol dependence, uncomplicated
CPT/HCPCS: 36415; 70450; 80053; 80061; 80305; 80320; 81003; 82150; 83036; 83735; 84100; 85025; 85610; 87081; 92508; 92616; 95816; 96374; 96375; 96376; 97112; 97116; 97161; 97530; 99285; C9113; G0378; J1644; J1953; J2060; J2405; J3411; J3475; J3490; J7030; J7060

== ENCOUNTER 2019-11-20 13:46 | Emergency (ER) | payer MEDICARE, MEDICAID ==
[~2019-11-20] VITALS: Ht 182.9 cm; Wt 80.0 kg
[~2019-11-20 13:46] MED LIST changes: +ALLO300T8 PO; +COLC0.6T69 PO; -FOLI1TAB16 PO; -GABA-532 PO; +GABA300T25 PO; +KEP500T PO; +LISI10TA4 PO; -MULT-1179 PO; +MULT-687 PO; -OMEP40CA13 PO; -POTASSIUM PO; -QUELT PO; +folic acid tablet PO
[2019-11-20] MEDS ORDERED: normal saline 1000ml 1,000 ML IV ONE (14:25)
[2019-11-20 14:32] LABS: BASOPHILS # (AUTO) 0.1 X10'3 (0-0.2); BASOPHILS % (AUTO) 0.8 % (0-1); EOSINOPHILS % (AUTO) 0.1 % (0-6); HEMATOCRIT 47.7 % (42.0-52.0); HEMOGLOBIN 16.1 g/dl (14.0-17.9); LYMPHOCYTES # (AUTO) 1.9 X10'3 (1.1-4.8); LYMPHOCYTES % (AUTO) 16.6 % (21-51); MEAN CORPUSCULAR HEMOGLOBIN 29.7 PG (27.0-31.0); MEAN CORPUSCULAR HGB CONC 33.9 g/dL (33.0-36.5); MEAN CORPUSCULAR VOLUME 87.7 FL (78-98); MEAN PLATELET VOLUME 8.6 FL (7.4-10.4); MONOCYTES # (AUTO) 0.8 X10'3 (0-0.9); MONOCYTES % (AUTO) 6.9 % (2-12); NEUTROPHILS # (AUTO) 8.7 X10'3 (1.8-7.7); NEUTROPHILS % (AUTO) 75.6 % (42-75); PLATELET COUNT 191 X10'3 (140-440); RED BLOOD COUNT 5.44 X10'6 (4.70-6.10); RED CELL DISTRIBUTION WIDTH 14.9 % (11.5-14.5); WHITE BLOOD COUNT 11.5 X10'3 (4.5-11.0)
[2019-11-20 14:41] LABS: ALANINE AMINOTRANSFERASE 33 U/L (12-78); ALBUMIN/GLOBULIN RATIO 1.2 (1.1-1.5); ALKALINE PHOSPHATASE 84 IU/L (46-116); ANION GAP 14 (8-16); ASPARTATE AMINO TRANSFERASE 30 U/L (10-37); BILIRUBIN,TOTAL 1.7 MG/DL (0.1-1.0); BLOOD UREA NITROGEN 12 MG/DL (7-18); BUN/CREATININE RATIO 9.4 (5.4-32.0); CALCIUM 9.8 MG/DL (8.5-10.1); CHLORIDE 100 MMOL/L (99-107); CREATININE 1.27 MG/DL (0.60-1.10); GLUCOSE 128 MG/DL (70-104); POTASSIUM 4.4 MMOL/L (3.5-5.1); SODIUM 137 MMOL/L (135-145); TOTAL CARBON DIOXIDE 23.5 MMOL/L (24-32); TOTAL PROTEIN 7.4 G/DL (6.4-8.2); eGFR 56 ML/MIN
[2019-11-20 14:46] LABS: ETHANOL < 0.010 GM/DL (0.0-0.010); LIPASE 108 U/L (73-393); TROPONIN I < 0.04 NG/ML (0.0-0.05)
[2019-11-20] MEDS ORDERED: LORazepam 2 mg/ml vial IV ONE (14:55)
--- NOTE | 2019-11-20 15:16 | NUR ---
PT UNABLE TO VOID WILL ASK AGAIN LATER
--- NOTE | 2019-11-20 15:30 | NUR ---
pt unable to void, straight cath performed
[2019-11-20 15:56] VITALS: BP 127/88
--- NOTE | 2019-11-20 16:03 | NUR ---
iv inflitrated ns bolus has 350ml left, ok per Dr. coppola to d/c iv and no new iv is needed
[2019-11-20 16:08] LABS: GLUCOSE, URINE NEGATIVE (Neg); KETONES,URINE 15 mg/dl (Neg); LEUKOCYTE ESTERASE ,URINE TRACE (Neg); NITRITES, URINE NEGATIVE (Neg); OCCULT BLOOD,URINE NEGATIVE (Neg); PROTEIN,URINE TRACE mg/dl (Neg)
[2019-11-20 16:17] LABS: CLARITY,URINE SLIGHTLY CLOUDY (Clear)
[2019-11-20 16:18] LABS: COLOR,URINE DARK YELLOW (Yellow); UA COLLECTION TYPE STRAIGHT CATH
[2019-11-20 16:25] LABS: RBC,URINE 0-2 /HPF (0-2)
[2019-11-20 16:26] LABS: BACTERIA,URINE FEW /HPF (Neg); MUCUS STRANDS MANY /LPF (Neg); SQUAMOUS EPITHELIAL CELL,UR FEW /LPF (FEW); TRANSITIONAL EPI CELLS,URINE FEW /HPF; WBC CLUMPS,URINE FEW /HPF (NEGATIVE)
== END 2019-11-20 17:08 | disposition home or self-care (01) ==
LOC: ER 13:46
DX: R10.12 Left upper quadrant pain (principal); R10.31 Right lower quadrant pain; R19.7 Diarrhea, unspecified; I12.9 Hypertensive chronic kidney disease with stage 1 through stage 4 chronic kidney disease, or unspecified chronic kidney disease; N18.9 Chronic kidney disease, unspecified; Z86.69 Personal history of other diseases of the nervous system and sense organs; Z90.49 Acquired absence of other specified parts of digestive tract; Z98.890 Other specified postprocedural states; Z56.0 Unemployment, unspecified; Z88.5 Allergy status to narcotic agent; Z79.899 Other long term (current) drug therapy
CPT/HCPCS: 36415; 71045; 74176; 80053; 80320; 81001; 83690; 84484; 85025; 87088; 93005; 96361; 96374; 99285; J2060; J7030

== ENCOUNTER 2022-07-19 13:37 | Outpatient (CLI) | payer MEDICARE, MEDICAID ==
[~2022-07-19 13:37] MED LIST changes: -COLC0.6T69 PO; +COLC0.6T72 PO; +FOLI0.8T3 PO; +GABA300C PO; -GABA300T25 PO; -KEP500T PO; +LEVE500T PO; +LISI10TA27 PO; -LISI10TA4 PO; +MAGN400C PO; +PANT40TA54 PO; +THIA100T66 PO; -TRAZ-251 PO; +TRAZ150T78 PO; +[UNRECOGNIZED DRUG - CODE] PO; -[UNRECOGNIZED DRUG - CODE] PO; -folic acid tablet PO; -thiamine tablet PO
== END 2022-07-19 23:59 | disposition home or self-care (01) ==
LOC: RAD 13:37
PROVIDERS: ATTEND Student in an Organized Health Care Education/Training Program
DX: R13.14 Dysphagia, pharyngoesophageal phase (principal); K21.9 Gastro-esophageal reflux disease without esophagitis; Z79.899 Other long term (current) drug therapy
CPT/HCPCS: 74230